=== PATIENT | female | born 1945 | race Caucasian/White ===

== ENCOUNTER 2021-01-03 10:31 | Emergency (ER) | payer MEDICARE ==
[~2021-01-03] VITALS: Ht 152.4 cm; Wt 75.0 kg
[2021-01-03 11:09] LABS: BASO # 0.1 (0.0-0.2); BASO % 0.4 % (0.0-2.0); EOS # 0.1 (0.0-0.7); EOS % 0.6 % (0-4.0); GRAN # 9.1 (1.4-6.5); GRAN % 72.2 % (42.2-75.2); HEMOGLOBIN 11.8 g/dl (12.5-16.0); LYMPH # 2.2 (1.2-3.4); LYMPH % 17.1 % (20.0-51.0); MEAN CELL VOLUME 83 fl (80.0-100.0); MEAN CORPUSCULAR HEMOGLOBIN 27 pg (27.0-31.0); MEAN CORPUSCULAR HGB CONC 32 g/dl (33.0-37.0); MEAN PLATELET VOLUME 11.3 fl (7.4-10.4); MONO # 1.2 (0.1-0.6); MONO % 9.1 % (1.7-9.3); PLATELET COUNT 215 K/mm3 (130-400); RED BLOOD COUNT 4.41 M/mm3 (4.10-5.30); REDCELL DISTRIBUTION WIDTH-CV 13.3 % (11.5-14.5)
[2021-01-03 11:11] LABS: HEMATOCRIT 36.8 % (37.0-47.0)
[2021-01-03 11:23] LABS: ALBUMIN 4.1 gm/dL (3.5-5.0); C-REACTIVE PROTEIN 8.5 mg/dL (0.0-0.9); CALCIUM 9.2 mg/dL (8.4-10.2); CREATININE, serum 1.02 (0.52-1.25); POTASSIUM 4.2 mmol/L (3.4-5.0); TOTAL PROTEIN 7.7 gm/dL (6.4-8.2)
[2021-01-03] MEDS ORDERED: ZOFRAN ODT4 MG PO (13:12)
[2021-01-03] MEDS ORDERED: OMNICEF 300MG300 MG PO (13:12)
[2021-01-03 14:08] VITALS: BP 114/64; PULSE 72; TEMP 98
== END 2021-01-03 14:00 | disposition home or self-care (01) ==
LOC: COL.ER 10:31
PROVIDERS: Family Medicine
DX: N12 Tubulo-interstitial nephritis, not specified as acute or chronic (principal); Z87.442 Personal history of urinary calculi; Z85.118 Personal history of other malignant neoplasm of bronchus and lung
CPT/HCPCS: J0696; J2405; J7120; Q9967

== ENCOUNTER → 2021-02-18 | Outpatient (CLI) | payer MEDICARE ==
[~2021-02-18] MED LIST: CELEXA 20MG20 MG/TAB PO; CRESTOR20 MG PO; GLUCOPHAGE500 MG/TAB PO; NORCO 325 MG-51 TAB PO; OMNICEF 300MG300 MG PO; PRILOSEC 20MG20 MG PO; PYRIDIUM 100MG100 MG PO; TENORMIN 5050 MG/TAB PO; ZOFRAN ODT4 MG PO
== END ==
LOC: COL.LAB 08:20 → EDSTATUS 08:44 → COL.LAB 08:45
DX: N20.0 Calculus of kidney (principal)

== ENCOUNTER 2021-02-21 05:30 | Day surgery (SDC) | payer MEDICARE ==
[2021-02-21] VITALS (10 sets, daily range): BP systolic 114–163; BP diastolic 41–82; PULSE 65–79; TEMP 97.4–98.6
[~2021-02-21] VITALS: Ht 155.6 cm; Wt 73.2 kg
[~2021-02-21 05:30] MED LIST changes: -CELEXA 20MG20 MG/TAB PO; -CRESTOR20 MG PO; -GLUCOPHAGE500 MG/TAB PO; -NORCO 325 MG-51 TAB PO; -PRILOSEC 20MG20 MG PO; -PYRIDIUM 100MG100 MG PO; -TENORMIN 5050 MG/TAB PO
[2021-02-21] MEDS ORDERED: CELEXA 20MG20 MG/TAB PO (06:46)
[2021-02-21] MEDS ORDERED: TENORMIN 5050 MG/TAB PO (06:46)
[2021-02-21] MEDS ORDERED: CRESTOR20 MG PO (06:46)
[2021-02-21] MEDS ORDERED: GLUCOPHAGE500 MG/TAB PO (06:47)
[2021-02-21] MEDS ORDERED: PRILOSEC 20MG20 MG PO (06:47)
--- NOTE | 2021-02-21 08:03 | NUR ---
Pt to radiology via wheelchair at this time.
--- NOTE | 2021-02-21 09:25 | NUR ---
Report received from Jesica RN in radiology, pt returns to [facility]. Drowsy but responds well. Nephrostomy tube and guidewire in place to right flank. Pt up to the bathroom and then returns to her room and pre-op medications from the [facility] given with a small sip of water. Daughter at bedside. Pt lays on left side and going to rest, denies needs at this time. Call light in reach. O2 sats 95%, B/p 176/76, HR 63.
[2021-02-21] MEDS ORDERED: NORCO 325 MG-51 TAB PO (10:58)
--- NOTE | 2021-02-21 14:00 | NUR ---
Patient up from OR. Drowsy but arouses to voice and touch. On 2 L of O2 via NC. Post op VSS and post op fluids infusing per orders. Incision to right flank with edges well approximated. Ramirez to DD with clear red-tinged urine present. Patient denies needs at this time.
--- NOTE | 2021-02-21 14:30 | NUR ---
Patient nauseated after ice chips. Medications given per orders. Family at bedside. No further needs at this time.
--- NOTE | 2021-02-21 18:40 | NUR ---
Patient doing well this afternoon. Ramirez maintained to DD with blood tinged urine present. Tolerating diet this afteroon without difficulties. Denies further needs at this time. Will report off to overnight houseperson.
[2021-02-22 00:01] VITALS: BP 129/44; PULSE 65; TEMP 98.4
[2021-02-22 04:12] VITALS: BP 178/75; PULSE 72; TEMP 98.1
--- NOTE | 2021-02-22 07:14 | NUR ---
PATIENT HAD AN UNEVENTFUL NIGHT. VSS. PAIN MANAGEMENT WITH TYLENOL. ON IVF NS AT 100ML/HR. PATIENT HAD NO COMPLAINTS. RICHARDS WITH BLOODY URINE NO CLOTH NOTED. DRESSING INTACT. WILL CONTINUE TO MONITOR.
[2021-02-22 07:36] VITALS: BP 122/52; PULSE 74; TEMP 98.2
--- NOTE | 2021-02-22 08:30 | NUR ---
Patient in bed resting. Alert and oriented x 3. Assessment complete. Patient denies pain at this time. Incison to right flank/back with edges well approximated. Ramirez to DD with clear red-tinged urine present. Fluids infusing per orders. Encouraged increase fluid intake. Previous lap sites from right lower lobectomy noted. Denies furhter needs at this time.
--- NOTE | 2021-02-22 09:00 | NUR ---
Patient to recliner with SBA. Denies needs at this time.
[2021-02-22] MEDS ORDERED: NORCO 325 MG-51 TAB PO (11:23)
[2021-02-22] MEDS ORDERED: PYRIDIUM 100MG100 MG PO (11:23)
--- NOTE | 2021-02-22 13:17 | NUR ---
General Maintenance Mechanic offered prayer and support with patient.
[2021-02-22 13:30] VITALS: BP 118/62; PULSE 71; TEMP 97.9
--- NOTE | 2021-02-22 14:20 | NUR ---
Patient voiding well after luis removal. Discharge education reviewed with patient. Educated on when to call provider and follow up appointment for stent removal. Patient educated on all new medications and medication safety. All questions answered. INT to left wrist discontinued, catheter tip intact. Denies further needs at this time. Patient out by wheelchair with surgical staff and family.
== END 2021-02-22 14:20 | disposition home or self-care (01) ==
LOC: SDCO 05:30 → SURG 14:12 → SDCO 02-22 14:20
DX: N20.0 Calculus of kidney (principal); E11.9 Type 2 diabetes mellitus without complications; I10 Essential (primary) hypertension; E78.00 Pure hypercholesterolemia, unspecified; Z20.822 Contact with and (suspected) exposure to COVID-19; Z85.118 Personal history of other malignant neoplasm of bronchus and lung; Z79.84 Long term (current) use of oral hypoglycemic drugs; Z79.899 Other long term (current) drug therapy
CPT/HCPCS: OP; A4314; A9284; C1726; C1729; C1758; C1769; C1894; C2617; J0330; J2250; J2370; J2405; J2704; J3010; J7030; J7120; Q9967